=== PATIENT | female | born 1940 | race Caucasian/White ===

== ENCOUNTER 2017-03-03 08:45 | Outpatient (CLI) | payer MEDICARE ==
--- NOTE | 2017-03-04 16:21 | Mammography Report ---
DIGITAL SCREENING MAMMOGRAM: 03/03/2017 CLINICAL INDICATION: A 77-year-old, for screening. COMPARISON: 01/2016, 12/2014, 01/2013, 01/2012, 01/2011, 01/2010, 12/2008, 12/2007. TECHNIQUE: Routine CC and MLO projections were obtained of the breasts. FINDINGS: The breasts again demonstrate scattered fibroglandular densities bilaterally. Coarse and p unctate, typically benign calcifications are present. No suspicious masses, clustered microcalcificat ions, or regions of architectural distortion are identified. IMPRESSION: BENIGN FINDINGS. RECOMMENDATION: ROUTINE ANNUAL SCREENING UNLESS OTHERWISE CLINICALLY INDICATED. BIRADS CATEGORY 2-BENIGN FINDINGS. STANDARD QUALIFYING STATEMENTS 1. This examination was reviewed with the aid of Computer-Aided Detection (CAD). 2. A negative or benign imaging report should not delay biopsy if clinically suspicious findings are present. Consider surgical consultation if warranted. More than 5% of cancers are not identified by i maging. 3. Dense breasts may obscure an underlying neoplasm. JOB #: [id number] EXT JOB #:[id number]
== END 2017-03-03 08:46 | disposition home or self-care (01) ==
LOC: DI 08:45
PROVIDERS: ATTEND Physician Assistant
DX: Z12.31 Encounter for screening mammogram for malignant neoplasm of breast (principal)
CPT/HCPCS: 77067

== ENCOUNTER 2017-10-19 14:58 | Outpatient (CLI) | payer MEDICARE ==
--- NOTE | 2017-10-20 09:38 | XRAY Report ---
DATE OF SERVICE: 10/19/2017 FOUR VIEW LEFT WRIST: 10/19/2017 CLINICAL INDICATION: Injury. FINDINGS: AP, lateral, oblique, scaphoid views of the left wrist demonstrate severe osteoarthritis at the first carpometacarpal joint. There is no evidence of acute fracture or dislocation. No radiopaque foreign body is seen in the soft tissues. IMPRESSION: SEVERE OSTEOARTHRITIS OF THE FIRST CARPOMETACARPAL JOINT. NO EVIDENCE OF ACUTE FRACTURE. TD: 10/20/2017 10:37
== END 2017-10-19 14:59 | disposition home or self-care (01) ==
LOC: DI 14:58
PROVIDERS: ATTEND Specialist
DX: M18.12 Unilateral primary osteoarthritis of first carpometacarpal joint, left hand (principal)

== ENCOUNTER 2018-02-01 09:59 | Outpatient (CLI) | payer MEDICARE ==
--- NOTE | 2018-02-02 09:20 | DEXA Report ---
DEXA SCAN: 02/01/2018 CLINICAL INDICATION: Postmenopausal. TECHNIQUE: Dual energy x-ray absorptiometry (DXA) was performed on a [employer] system. Regions measured are the AP spine, femoral neck, and, if needed, forearm. COMPARISON: None. In accordance with the International Society for Clinical Densitometry (ISCD) guidelines, data from previous exams may be reanalyzed using current recommendations and techniques. This is done to allow a more accurate basis for comparison with the current study. FINDINGS The data for the lumbar spine is as follows: REGION BMD (g/cm/cm) T-SCORE Z-SCORE L1 1.330 1.7 3.4 L2 1.572 3.1 4.8 L3 1.430 1.9 3.6 L4 1.399 1.7 3.4 L1-L4 1.432 2.1 3.8 NOTE: All evaluable vertebrae are used for classification. The data for the hip is as follows: REGION BMD (g/cm/cm) T-SCORE Z-SCORE Neck 0.818 -1.6 0.5 TOTAL 0.946 -0.5 1.4 NOTE: The femoral neck or total proximal femur, whichever is lowest, is used for classification. IMPRESSION WHO CLASSIFICATION BASED ON THE INTERNATIONAL REFERENCE STANDARD IS OSTEOPENIA (REFERENCE LEFT FEMORAL NECK). THE FRACTURE RISK IS INCREASED. RECOMMENDATION: Patients with diagnosis of osteoporosis or osteopenia should have regular bone mineral density assessment. For those eligible for Medicare, routine testing is allowed once every 2 years. Testing frequency can be increased for patients who have rapidly progressing disease or for those who are receiving medical therapy to restore bone mass. COMMENT World Health Organization (WHO) definitions for osteoporosis and osteopenia: NORMAL BMD: T-score at 1.0 or higher, fracture risk is low. OSTEOPENIA BMD: T-score between 1.0 and -2.5, fracture risk is increased. OSTEOPOROSIS BMD: T-score at 2.5 or lower, fracture risk high. National Osteoporosis Foundation recommends: 1. Obtain adequate dietary calcium (at least 1200 mg per day) and vitamin D (400 -800 international units per day). 2. Participate, as appropriate, in regular weightbearing and muscle- strengthening exercise. 3. Avoid tobacco use and reduce alcohol and caffeine intake. 4. For more detailed information see the website at www.NOF.org. TD: 02/01/2018 12:43 CARYN
== END 2018-02-01 10:00 | disposition home or self-care (01) ==
LOC: DI 09:59
PROVIDERS: ATTEND Physician Assistant
DX: Z13.820 Encounter for screening for osteoporosis (principal); M85.88 Other specified disorders of bone density and structure, other site
CPT/HCPCS: 77080

== ENCOUNTER 2018-06-19 16:53 | Emergency (ER) | payer MEDICARE ==
[2018-06-19] MEDS ORDERED: diphenhydrAMINE 25 MG CAPSULE PO STA (17:10)
[2018-06-19] MEDS ORDERED: DEXAMETHASONE 10 MG/ML VIAL PO STA (17:10)
[2018-06-19] MEDS ORDERED: CETIRIZINE 10 MG TABLET PO STA (17:10)
[2018-06-19] MEDS ORDERED: CHERRY SYRUP 10 ML UDC PO ONE (17:16)
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
[2018-06-19 18:25] VITALS: BP 123/75
== END 2018-06-19 18:24 | disposition home or self-care (01) ==
LOC: ED 16:53
DX: T63.441A Toxic effect of venom of bees, accidental (unintentional), initial encounter (principal); R22.32 Localized swelling, mass and lump, left upper limb; R22.0 Localized swelling, mass and lump, head; J45.909 Unspecified asthma, uncomplicated; I10 Essential (primary) hypertension
CPT/HCPCS: 99282; 99283; A9270

== ENCOUNTER 2018-11-06 16:05 | Outpatient (CLI) | payer MEDICARE | END 2018-11-06 16:06 | disposition critical access hospital (66) | LOC: EMS 16:05 | PROVIDERS: ATTEND Surgery | DX: I46.9 Cardiac arrest, cause unspecified (principal) | CPT/HCPCS: A0425; A0433 ==

== ENCOUNTER 2018-11-06 16:23 | Emergency (ER) | payer MEDICARE ==
[2018-11-06] MEDS: SODIUM CHLORIDE 0.9% 1,000 ML IV ONE (16:26)
[2018-11-06] MEDS: EPINEPHrine ABBOJECT 1 MG/10 ML SYRINGE IVP STA (16:26)
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
== END 2018-11-06 19:30 | disposition expired ==
LOC: EDBD → EDUNIT# → ED 16:23
DX: I46.9 Cardiac arrest, cause unspecified (principal); I49.01 Ventricular fibrillation; I10 Essential (primary) hypertension; Z79.82 Long term (current) use of aspirin
CPT/HCPCS: 80053; 80307; 80320; 80329; 82550; 82553; 82803; 83605; 83690; 83735; 83880; 84100; 84484; 85025; 85610; 85730; 92950; 99284; 99285